=== PATIENT | female | born 1965 | race Caucasian/White ===

== ENCOUNTER 2017-12-01 10:39 | Inpatient (IN) | payer OTHER ==
[~2017-12-01] VITALS: Ht 152.4 cm; Wt 73.4 kg
[~2017-12-01 10:39] MED LIST: AMOXICILLIN500 M1 PO; BACTRIM DS TAB1 EACH PO; CIPRO500 M1 PO; CIPROFLOXACIN500 M1 PO; DOXYCYCLINE 10100 MG PO; FLEXERIL; FLEXERIL PO; HYDROCODON-ACE1 EAC7 PO; IBUPROFEN 800800 M1 PO; KEFLEX500 MG PO; MEDROL DOSPAK21 TAB PO; NOHOMEMEDICATIONS; NORCO 5-325 TA1 EACH PO; PENICILLIN VK250 MG PO; PEPCID40 MG PO; PERIDEX 0.12%473 M1 SSP; TRAMADOL 50 MG50 MG PO; TYLENOL PM; ULTRAM 50MG TAB50 MG PO; ZOFRAN ODT4 MG PO; ZOFRAN4 MG PO
[2017-12-01 10:52] VITALS: BP 120/62
[2017-12-01 11:34] LABS: MCHC 33.4 g/dL (28.0-37.0); MCV 89.9 fL (80.0-100.0); MPV 7.7 fl. (7.2-11.1); NUCLEATED RBCS 0 /100WBC; PLATELET COUNT* 401 thou/uL (150-400); RBC 4.67 mil/uL (4.20-5.00); RDW-CV 13.8 % (10.5-14.5); WBC 20.1 thou/uL (4.0-11.0)
[2017-12-01 11:43] LABS: ANION GAP 10 mmol/L (7-16); BUN 8 mg/dL (7-18); CALCIUM 9.5 mg/dL (8.5-10.1); CHLORIDE 98 mmol/L (98-107); CO2 28 mmol/L (21-32); CREATININE 1.3 mg/dL (0.6-1.3); GLUCOSE 149 mg/dL (70-99); POTASSIUM 3.9 mmol/L (3.5-5.1); SODIUM 136 mmol/L (136-145)
[2017-12-01 11:50] LABS: ALBUMIN 3.4 g/dL (3.4-5.0); ALKALINE PHOSPHATASE 115 U/L (46-116); SGOT 28 U/L (15-37); SGPT 25 U/L (30-65); TOTAL BILIRUBIN 0.4 mg/dL (<0.1-1.0); TOTAL PROTEIN 9.3 g/dL (6.4-8.2); TROPONIN-I LEVEL <0.06 ng/mL (<0.06)
[2017-12-01 12:07] LABS: ABSOLUTE EOSINOPHILS 0.2 thou/uL (0.0-0.7); ABSOLUTE LYMPHOCYTES 2.6 thou/uL (0.8-5.3); ABSOLUTE MONOCYTES 0.4 thou/uL (0.0-1.2); ABSOLUTE NEUTROPHILS 16.9 thou/uL (1.6-8.1)
[2017-12-01 12:08] LABS: ANISOCYTOSIS 1+; PLATELET ESTIMATE INCREASED; POIKILOCYTOSIS 1+
[2017-12-01 13:14] LABS: URINE BLOOD 3+ (Negative); URINE CLARITY CLEAR; URINE COLOR YELLOW; URINE GLUCOSE-RANDOM NEGATIVE (Negative); URINE KETONES 2+ (Negative); URINE LEUKOCYTES-REFLEX 1+ (Negative); URINE NITRITE-REFLEX NEGATIVE (Negative); URINE PROTEIN 1+ (Negative); URINE SPECIFIC GRAVITY <= 1.005 (1.005-1.030)
[2017-12-01 13:22] LABS: ICTOTEST (BILI CONFIRMATORY) Negative (Negative); URINE BILIRUBIN 1+ (Negative)
[2017-12-01 13:23] LABS: AMP/METHAMP Negative (Negative); BARBITURATES Negative (Negative); BENZODIAZEPINES Negative (Negative); COCAINE Negative (Negative); METHADONE Negative (Negative); OPIATES Negative (Negative); PCP Negative (Negative); THC Negative (Negative)
[2017-12-01 13:27] LABS: SQUAMOUS >10 Many /LPF (0-3); URINE WBC-REFLEX 6-15 Few /HPF (0-5)
[2017-12-01 13:28] LABS: CRYSTALS None Seen /LPF (None Seen); FINE GRANULAR CASTS 0-3 Few /LPF (None Seen); HYALINE CASTS 4-10 Moderate /LPF (None Seen); MUCUS None Seen strn/LPF (None Seen)
--- NOTE | 2017-12-01 15:17 | EKG ---
[place] [address] ELECTROCARDIOGRAM REPORT Name: SHERINE STANLEY Room: [address] IN [facility]#: [id number] Admission: 12/01/17 Attend Phys: Cyrli Lorenz Discharge: Date of : 69 Report #: [id number] THIS REPORT FOR: //name// [facility] ED Test Date: 2017-12-01 Test Time: 12:51:28 Pat Name: SHERINE STANLEY Department: Room: Gender: Equipment Tester: Latrice VILLEDA : 1965 Requested By: Adia Cifuentes Order Number: [id number] MD: Antonio Aguiar Measurements Intervals [place] Rate: 97 P: 54 TN: 145 QRS: 51 QRSD: 86 T: 28 QT: 347 QTc: 441 Interpretive Statements Sinus rhythm Compared to ECG 12/15/2016 16:48:35 No significant changes Electronically Signed On 12-01-2017 15:17:21 CDT by Antonio Aguiar [email or web address] <ELECTRONICALLY SIGNED> By: Antonio Aguiar MD, [facility] 12/01/17 1517 1251 [id number] Antonio Aguiar MD, [facility] /EPI
--- NOTE | 2017-12-01 16:17 | 2DMMODE ---
[place] [address] 2 D/M-MODE ECHOCARDIOGRAM Name: SHERINE STANLEY CAITLIN Room: [facility]6 ADM IN [facility]#: [id number] Admission: 12/01/17 Attend Phys: Celso Gonzalez Discharge: Date of : 69 Date of Service: 12/01/17 1617 Report #: [id number] THIS REPORT FOR: //name// APPROVED REPORT Study performed: 12/01/2017 15:14:00 EXAM: Comprehensive 2D, Doppler, and color-flow Echocardiogram Patient Location: In-Patient Room #: er Status: routine BSA: 1.73 HR: 68 bpm BP: 134/74 mmHg Rhythm: NSR Other Information Study Quality: Good Indications Weakness 2D Dimensions LVEF(%): 75.24 (>50%) IVSd: 14.56 (7-11mm) LVOT Diam: 19.06 (18-24mm) LVDd: 40.92 mm PWd: 9.75 (7-11mm) Ascending Ao: 32.15 (22-36mm) LVDs: 23.09 (25-40mm) Aortic Root: 26.93 mm Felipe's LVEF: 75.24 % Volumes Left Atrial Volume (Systole) LA ESV Index: 18.80 mL/m2 Aortic Valve AoV Peak Gagan.: 1.96 m/s AO Peak Gr.: 15.30 mmHg LVOT Max P.62 mmHg AO Mean Gr.: 7.57 mmHg LVOT Mean P.40 mmHg LVOT Max V: 1.19 m/s AO V2 VTI: 33.43 cm LVOT Mean V: 0.69 m/s BETITO (VTI): 1.99 cm2 LVOT V1 VTI: 23.38 cm Mitral Valve E/A Ratio: 1.00 [place] [address] 2 D/M-MODE ECHOCARDIOGRAM Name: SHERINE STANLEY CAITLIN Room: [address] IN .R.#: [id number] Admission: 12/01/17 Attend Phys: Celso Gonzalez Discharge: Date of : 69 Date of Service: 12/01/17 1617 Report #: [id number] MV Decel. Time: 203.05 ms MV E Max Gagan.: 0.91 m/s MV PHT: 58.88 ms MVA (PHT): 3.74 cm2 TDI E/Lateral E': 9.10 E/Medial E': 13.00 Medial E' Gagan.: 0.07 m/s Lateral E' Gagan.: 0.10 m/s Pulmonary Valve PV Peak Gagan.: 1.09 m/s PV Peak Gr.: 4.76 mmHg Left Ventricle The left ventricle is normal size. There is normal LV segmental wall motion. Moderatel septal hypertrophy is present. Left ventricular systolic function is normal. The left ventricular ejection fraction is within the normal range. LVEF is 65%. Grade I - abnormal relaxation pattern. Right Ventricle The right ventricle is normal size. The right ventricular systolic function is normal. Atria The left atrium size is normal. The right atrium size is normal. Aortic Valve The aortic valve is normal in structure. No aortic regurgitation is present. There is no aortic valvular stenosis. Mitral Valve The mitral valve is normal in structure. Trace mitral regurgitation. No evidence of mitral valve stenosis. Tricuspid Valve The tricuspid valve is normal in structure. Unable to assess PA pressure. Trace tricuspid regurgitation. Pulmonic Valve The pulmonary valve is normal in structure. There is no pulmonic valvular regurgitation. Great Vessels The aortic root is normal in size. IVC is [place] [address] 2 D/M-MODE ECHOCARDIOGRAM Name: SHERINE STANLEY CAITLIN Room: [address] IN [facility]#: [id number] Admission: 12/01/17 Attend Phys: Celso Gonzalez Discharge: Date of : 69 Date of Service: 12/01/17 1617 Report #: [id number] collapses with >50% inspiration Pericardium There is no pericardial effusion. <Conclusion> LVEF is 65%. There is normal LV segmental wall motion. Grade I - abnormal relaxation pattern. There is no aortic valvular stenosis. No aortic regurgitation is present. Trace mitral regurgitation. No evidence of mitral valve stenosis. <ELECTRONICALLY SIGNED> By: Antonio Aguiar MD, FACC 12/01/17 [phone] Antonio Aguiar MD, FACC /INF
[2017-12-01 16:22] VITALS: BP 133/65
[2017-12-01 16:47] VITALS: BP 147/72
--- NOTE | 2017-12-01 17:47 | NUR ---
PATIENT ADMITTED TO ROOM 110 FROM ER AT 1630. PATIENT AOX4. UP WITH STANDBY ASSIST FROM ER CART TO BATHROOM TO VOID. VOIDED ADEQUATELY, BUT NOT MEASURED. DENIES PAIN. ROOM AIR. NS INFUSING PER EMAR IN LAC IV. PATIENT ORIENTED TO ROOM. CALL LIGHT WITHIN REACH. FALL RISK PRECAUTIONS EXPLAINED, PATIENT IN AGREEMENT. FALL RISK BAND, ALLERGY BAND PLACED ON PATIENT. ATE 50% OF DINNER. DENIES FURTHER NEEDS.
[2017-12-01 20:30] VITALS: BP 158/61
--- NOTE | 2017-12-02 06:29 | NUR ---
Alert and oriented x 4. Up with stand by assist to the bathroom,voiding adequately. She does have lower back pain and it has increased to 8 out of 10. She continues to only take tylenol for the pain. She has slept well.
[2017-12-02 08:58] VITALS: BP 134/45
--- NOTE | 2017-12-02 15:19 | NUR ---
SPOKE WITH PT. GAVE AND REVIEWED PACKET FOR THE UNINSURED ALONG WITH A PRESCRIPTION DRUG DISCOUNT CARD. SHE LIVES ALONE. SOMETIMES HR PEDRO,WHO IS IN [employer] COMES HOME AND OTHER TIMES PT.GOES TO HER MOMS TO STAY-TO HELP HER WITH HOUSE WORK AND THEN SHE'LL STAY THE NIGHT. SHE IS NORMALLY INDEPENDENT AT HOME. SHE IS UNEMPLOYED. PT.NEEDS LSO BRACE. CALLED DEIDRE/VICTORINO TO CHECK ON [place] IF PT.PAID OUT RIGHT. IT WOULD BE $258.62. IF PT.INTERESTED AND WANTS TO MAKE PAYMENTS SHE WILL NEED TO CALL ABHISHEK GLEASON TO DISCUSS AT [phone]. WILL TALK TO PT.ABOUT THIS.
[2017-12-02] MEDS ORDERED: ACETAMINOPHEN-1 EAC1 PO (15:37)
[2017-12-02] MEDS ORDERED: CIPRO500 M1 PO (15:37)
[2017-12-02 16:43] VITALS: BP 134/45
[2017-12-02] MEDS ORDERED: IBUPROFEN 200200 M1 PO (16:57)
--- NOTE | 2017-12-02 17:20 | NUR ---
PATIENT LEFT UNIT AT 1710 BY WHEELCHAIR WITH NURSING STAFF. IV DC'D. EDUCATED PATIENT ON NEW MED SCRIPTS, DISCHARGE INSTRUCTIONS, SMOKING CESSATION, AND INSTRUCTIONS ON CONTACTING [facility] FOR FOLLOW UP. PATIENT AND FAMILY VERBALIZED UNDERSTANDING. ALL BELONGINGS LEFT WITH PATIENT.
[2017-12-02 17:50] VITALS: BP 134/45
== END 2017-12-02 16:15 | disposition home or self-care (01) | DRG 551 ==
LOC: M.ERS 10:39 → M.ORTHSURG 13:26 → M.TBA-ER 13:26 → M.ORTHSURG 16:33
PROVIDERS: Physician Assistant; ADMIT Internal Medicine
DX: S32.039A Unspecified fracture of third lumbar vertebra, initial encounter for closed fracture (principal); N17.0 Acute kidney failure with tubular necrosis; N39.0 Urinary tract infection, site not specified; R55 Syncope and collapse; I10 Essential (primary) hypertension; F17.210 Nicotine dependence, cigarettes, uncomplicated; D72.829 Elevated white blood cell count, unspecified; I73.89 Other specified peripheral vascular diseases; W18.39XA Other fall on same level, initial encounter; Z79.2 Long term (current) use of antibiotics; Z88.8 Allergy status to other drugs, medicaments and biological substances; Z79.899 Other long term (current) drug therapy; Y93.89 Activity, other specified; Y92.89 Other specified places as the place of occurrence of the external cause; Y99.8 Other external cause status

== ENCOUNTER 2018-01-04 00:43 | Emergency (ER) | payer OTHER ==
[~2018-01-04] VITALS: Ht 162.6 cm; Wt 65.8 kg
[~2018-01-04 00:43] MED LIST changes: +ACETAMINOPHEN-1 EAC1 PO; +IBUPROFEN 200200 M1 PO
[2018-01-04 01:08] LABS: URINE BILIRUBIN NEGATIVE (Negative); URINE BLOOD NEGATIVE (Negative); URINE CLARITY CLEAR; URINE COLOR YELLOW; URINE GLUCOSE-RANDOM NEGATIVE (Negative); URINE KETONES NEGATIVE (Negative); URINE LEUKOCYTES-REFLEX 1+ (Negative); URINE NITRITE-REFLEX NEGATIVE (Negative); URINE PROTEIN NEGATIVE (Negative)
[2018-01-04 01:53] LABS: CASTS None Seen /LPF (None Seen); CRYSTALS None Seen /LPF (None Seen); SQUAMOUS >10 Many /LPF (0-3); URINE RBC None Seen /HPF (0-2); URINE WBC-REFLEX 6-15 Few /HPF (0-5)
[2018-01-04] MEDS ORDERED: CIPROFLOXACIN500 M1 PO (02:06)
[2018-01-04] MEDS ORDERED: FLEXERIL PO (02:06)
[2018-01-04 02:10] VITALS: BP 139/74
== END 2018-01-04 02:11 | disposition home or self-care (01) ==
LOC: M.ERS 00:43
PROVIDERS: Emergency Medicine
DX: N39.0 Urinary tract infection, site not specified (principal); M54.5 Low back pain; M54.6 Pain in thoracic spine; F17.210 Nicotine dependence, cigarettes, uncomplicated; I10 Essential (primary) hypertension; Z90.89 Acquired absence of other organs; Z88.8 Allergy status to other drugs, medicaments and biological substances